=== PATIENT | male | born 1990 | race Caucasian/White ===

== ENCOUNTER 2019-12-21 11:30 | Outpatient (CLI) | payer OTHER | END 2019-12-21 11:31 | disposition home or self-care (01) | LOC: COV 11:30 | PROVIDERS: ATTEND Family Medicine | DX: R05 Cough (principal); R53.83 Other fatigue; Z20.828 Contact with and (suspected) exposure to other viral communicable diseases ==

== ENCOUNTER 2022-10-12 14:39 | Outpatient (CLI) | payer OTHER ==
--- NOTE | 2022-10-12 19:14 | Ultrasound Report ---
PROCEDURE: Abdomen Limited INDICATIONS: UMBILICAL HERNIA TECHNIQUE: Real-time focused scanning was performed of the periumbilical anterior wall, with image documentation . COMPARISONS: None. FINDINGS: Small periumbilical ventral hernia contains fat without bowel involvement. 1 cm fascial def ect noted. IMPRESSION: Small periumbilical ventral hernia Reviewed by: Trell French MD on 10/12/2022 6:12 PM [facility]DT Approved by: Trell French MD on 10/12/2022 6:12 PM AKDT Station ID: [id number]
== END 2022-10-12 14:40 | disposition home or self-care (01) ==
LOC: DI 14:39
PROVIDERS: ATTEND Family Medicine
DX: K43.9 Ventral hernia without obstruction or gangrene (principal)

== ENCOUNTER 2022-12-11 08:38 | Day surgery (SDC) | payer OTHER ==
[~2022-12-11 08:38] MED LIST: PROPOFOL 500 MG/50 ML 500 MG/50 ML VIAL ONE
[2022-12-11] MEDS ORDERED: LACTATED RINGERS 1,000 ML IV ONE (08:40)
[2022-12-11] MEDS ORDERED: BUPIVACAINE 0.25% PF 30 ML VIAL ONE (09:39)
--- NOTE | 2022-12-11 10:00 | HISTORY & PHYSICAL EXAMINATION ---
Chief Complaint - Chief Complaint Chief Complaint: painful hernia bulge History of Present Illness - History Obtained From Records Reviewed: yes History obtained from: pt Exam Limitations: none - History of Present Illness HPI Comment/Other: painful hernia bulge. here for repair History - Past Medical History Cardiovascular: reports: Murmur Respiratory: reports: Sleep apnea Endocrine/Autoimmune: reports: None GI: reports: None : reports: Kidney stones HEENT: reports: Other Psych: reports: Depression Musculoskeletal: reports: None Derm: reports: None MRSA Hx?: No - Past Surgical History HEENT: reports: Myringotomy (tubes) Meds/Allgy - Home Medications Home Medications: Ambulatory Orders Medication Instructions Recorded Confirmed No Known Home Medications 12/04/22 12/04/22 - Allergies Allergies/Adverse Reactions: Allergies Allergy/AdvReac Type Severity Reaction Status Date / Time No Known Drug Allergies Allergy Verified 12/11/22 08:57 Review of Systems - Other Findings Other Findings: 10 pt ros as above otherwise unremarkable Exam - Vital Signs Vital Signs: Vital Signs x48h Temp Pulse Resp BP Pulse Ox 12/11/22 08:41 36.1 C L 72 16 140/90 H 96 - Physical Exam General Appearance: positive: No acute distress, Alert Eyes Bilateral: positive: PERRL, EOMI ENT: positive: No signs of dehydration Neck: positive: No JVD, Trachea midline Respiratory: positive: No respiratory distress, Breath sounds nml Cardiovascular: positive: Regular rate & rhythm Abdomen: positive: Non-tender, No distention, Other (umbilical hernia present) Neurologic/Psychiatric: positive: Oriented x3 Conclusion/Plan - Problem List (1) Umbilical hernia Conclusion/Plan: plan open repair with mesh. parq held and consent obtained Qualifiers: Obstruction and gangrene presence: without obstruction or gangrene Qualified Code(s): K42.9 - Umbilical hernia without obstruction or gangrene
[2022-12-11] MEDS ORDERED: fentaNYL 100 MCG/2 ML VIAL ONE ×2 (10:09→12:22)
[2022-12-11] MEDS ORDERED: ACETAMINOPHEN 1,000 MG/100 ML 1,000 MG/100 ML BAG IV ONE (10:27)
[2022-12-11] MEDS ORDERED: SUCCINYLCHOLINE 200 MG/10 ML VIAL ONE (10:28)
[2022-12-11] MEDS ORDERED: GLYCOPYRROLATE 1 MG/5 ML VIAL ONE (10:28)
[2022-12-11] MEDS ORDERED: DEXAMETHASONE 4 MG/ML VIAL ONE (10:28)
[2022-12-11] MEDS ORDERED: KETOROLAC 30 MG/ML VIAL ONE (10:28)
[2022-12-11] MEDS ORDERED: ONDANSETRON 4 MG/2 ML VIAL ONE (10:28)
[2022-12-11] MEDS ORDERED: ROCURONIUM 50 MG/5 ML VIAL ONE (10:28)
--- NOTE | 2022-12-11 10:46 | ANESTHESIA ---
Pre-Anesthesia VS, & Labs - Diagnosis umbilical hernia - Procedure umbilical hernia repair Vital Signs: Temp Pulse Resp BP Pulse Ox O2 Flow Rate 36.1 C L 72 16 140/90 H 96 12/11/22 08:41 12/11/22 08:41 12/11/22 08:41 12/11/22 08:41 12/11/22 08:41 Height: 5 ft 11 in Weight (kg): 162.7 kg Body Mass Index: 50.0 BMI Classification: Morbidly Obese - NPO >8 hours - Lab Results Lab results reviewed: Yes Home Medications and Allergies Home Medications: Ambulatory Orders No Known Home Medications 12/04/22 No Known Home Medications 12/04/22 Allergies/Adverse Reactions: Allergies Allergy/AdvReac Type Severity Reaction Status Date / Time No Known Drug Allergies Allergy Verified 12/11/22 08:57 Anes History & Medical History - Anesthetic History Anesthesia Complications: reports: No previous complications Family history of Anesthesia Complications: Denies Family history of Malignant Hyperthermia: Denies - Medical History Cardiovascular: reports: None Pulmonary: reports: Sleep apnea (8 yr ago sleep study= severe michel, no cpap, discussed low threshold for overnight admission depending on postop recovery process) Gastrointestinal: reports: None Urinary: reports: Kidney stones Neuro: reports: None Musculoskeletal: reports: None Endocrine/Autoimmune: reports: None Skin: reports: None Smoking Status: Never smoker Psychosocial: reports: No issues indicated - Surgical History Eyes Ears Nose Throat (EENT): reports: Myringotomy (tubes) Exam General: Alert, Oriented x3, Cooperative Mouth and Teeth Image: 1 - chip Mouth Openin Fingerbreadth Neck Mobility: Normal Mallampati classification: IV Thyromental Distance: 4-6 cm Respiratory: Lungs clear Cardiovascular: Regular rate Plan Anesthesia Type: General Consent for Procedure(s) Verified and Reviewed: Yes Code Status: Attempt Resuscitation ASA classification: 3-Severe systemic disease Is this case an emergency?: No
[2022-12-11] MEDS ORDERED: ATROPINE ABBOJECT 1 MG/10 ML SYRINGE IVP PRN (10:47)
[2022-12-11] MEDS ORDERED: ONDANSETRON 4 MG/2 ML VIAL IVP PRN ×2 (10:47→11:40)
[2022-12-11] MEDS ORDERED: fentaNYL 100 MCG/2 ML VIAL IVP PRN (10:47)
[2022-12-11] MEDS ORDERED: NALOXONE 0.4 MG/ML VIAL IVP PRN (10:47)
[2022-12-11] MEDS ORDERED: HYDROmorphone 0.5 MG/0.5 ML SYRINGE IVP PRN ×2 (10:47→11:40)
[2022-12-11] MEDS ORDERED: ePHEDrine 50 MG/ML VIAL IVP PRN (10:47)
[2022-12-11] MEDS ORDERED: LACTATED RINGERS 1,000 ML IV SCH (11:00)
[2022-12-11] MEDS ORDERED: SUGAMMADEX 200 MG/2 ML VIAL IVP ONE ×2 (11:18→11:19)
[2022-12-11] MEDS ORDERED: LIDOCAINE-PF 2% 10 ML AMP SUBQ ONE (11:21)
[2022-12-11] MEDS ORDERED: BUPIVACAINE 0.25% PF 30 ML VIAL SUBQ ONE (11:25)
[2022-12-11] MEDS ORDERED: LACTATED RINGERS 900 ML IV ONE ×2 (11:38)
[2022-12-11] MEDS ORDERED: HYDROcod/ACETAM 5/325 MG TABLET PO PRN (11:40)
--- NOTE | 2022-12-11 11:49 | OPERATIVE REPORT ---
Operative Report - General Procedure Date: 12/11/22 Planned Procedure: open umbilical hernia repair with mesh Pre-Op Diagnosis: painful umbilical hernia Procedure Performed: open umbilical hernia repair with mesh. 3.5 cm hernia Post Op Diagnosis: same - Procedure Note Primary Surgeon: tova watson Anesthesia Technique: General ET tube, Local Pathology: none Estimated Blood Loss (mL): 2 Drain/Tube Type: Other (none) Indications: painful hernia bulge Findings: as above. 1.5 x 3 inch polypropylene mesh Complications: none - Other Other Information/Narrative: The patient was properly identified brought to the operating room and placed in supine position. Sequential compression devices were placed. General anesthesia was induced. The patient was prepped and draped in a sterile fashion and given preoperative antibiotics. Local anesthetic was given throughout the procedure. An infraumbilical incision was made. Dissection proceeded sharply. Subcutaneous tissue was mobilized away from the fascial defect by 2 cm in all directions. Umbilical skin was sharply excised away from the hernia sac or peritoneum. The peritoneum was then carefully released from the fascial defect edge with cutting current cautery. A preperitoneal space was developed for mesh placement. Polypropylene mesh was cut to size approximately 1.5 x 3 inches and placed preperitoneal. The mesh was secured with 9 interrupted 0 Ethibond sutures. An additional inner row of ethibond sutures were placed. The mesh lay in good position without tension. Subcutaneous tissue was reapproximated with interrupted 2-0 Vicryl suture. Umbilical skin was tacked back down to fascia with interrupted 2-0 Vicryl suture. Buried interrupted subdermal 3-0 Vicryl sutures were then placed. Skin was closed with a running 4-0 Monocryl subcuticular suture. Dressing was applied. Patient tolerated the procedure the procedure well was awakened and brought to recovery in good condition.
[2022-12-11 12:54] VITALS: O2SAT 92
[2022-12-11 13:34] VITALS: BP 132/78
--- NOTE | 2022-12-11 19:15 | ANESTHESIA POST OP EVALUATION ---
Anesthesia Post Eval - Post Anesthesia Eval Vitals: Last Vital Signs Temp 36.4 C L 12/11/22 13:08 Pulse 63 12/11/22 13:23 Resp 16 12/11/22 13:23 BP 132/78 H 12/11/22 13:23 Pulse Ox 92 12/11/22 13:23 O2 Flow Rate CV Function Including HR & BP: Stable Pain Control: Satisfactory Nausea & Vomiting: Negative Mental Status: Baseline Respiratory Status: Airway Patent Hydration Status: Satisfactory Anesthesia Complications: None
== END 2022-12-11 08:39 | disposition home or self-care (01) ==
LOC: SDS 08:38
PROVIDERS: ATTEND Surgery
DX: K42.9 Umbilical hernia without obstruction or gangrene (principal); G47.33 Obstructive sleep apnea (adult) (pediatric); E66.01 Morbid (severe) obesity due to excess calories; Z68.43 Body mass index [BMI] 50.0-59.9, adult
CPT/HCPCS: 49593; C1781; J0131; J0330; J7040; J7120

== ENCOUNTER 2023-05-08 14:50 | Outpatient (CLI) | payer OTHER ==
--- NOTE | 2023-05-08 15:45 | Sleep Patient Instructions ---
Sleep Center Visit Summary - Patient Visit Information Reason for Visit: Initial consult for evaluation of sleep disordered breathing and other sleep issues. - Patient Instructions Instructions Attached: Sleep Study Home Monitor Additional Instructions: You will be completing a sleep study, either an in-lab polysomnography (PSG) or home sleep study (HST). You will follow-up in the sleep care office after the sleep study is completed to hear the results and talk about therapy, if needed. You will be called by our office staff to schedule this appointment, but you may contact us with any questions. - Clinic Information Contact: [facility] [address] [place] [address] [email or web address] T: [phone]
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
[2023-05-08 15:53] VITALS: BP 147/92; O2SAT 97
== END 2023-05-08 14:51 | disposition home or self-care (01) ==
LOC: SC 14:50
PROVIDERS: ATTEND Nurse Practitioner Family
DX: G47.10 Hypersomnia, unspecified (principal); R06.81 Apnea, not elsewhere classified; R06.83 Snoring; R53.83 Other fatigue; E66.01 Morbid (severe) obesity due to excess calories; Z68.43 Body mass index [BMI] 50.0-59.9, adult
CPT/HCPCS: 99203; 99212

== ENCOUNTER 2023-06-11 07:58 | Outpatient (CLI) | payer OTHER | END 2023-06-11 07:59 | disposition home or self-care (01) | LOC: SC 07:58 | PROVIDERS: ATTEND Nurse Practitioner Family | DX: G47.33 Obstructive sleep apnea (adult) (pediatric) (principal); R09.02 Hypoxemia; E66.01 Morbid (severe) obesity due to excess calories; Z68.43 Body mass index [BMI] 50.0-59.9, adult | CPT/HCPCS: 95806 ==

== ENCOUNTER 2023-07-02 10:34 | Outpatient (CLI) | payer OTHER ==
--- NOTE | 2023-07-02 10:26 | SLEEP CARE CONSULTATION ---
Information from patient questionnaire entered by Radha Jackman. I have reviewed and concur with the information entered by Radha Jackman. This document represents the service I personally performed and the decisions made by me, Lina Lawrence ARNP. History of Present Illness Service Date and Time: 07/02/2023 1020 Initial [place] Sleepiness Scale score: 13 (04/06/23) Current [place] Sleepiness Scale score: 16 (07/02/23) Additional HPI information: CONSTANTIN BAUER returns via video appointment for follow up and results of the recently performed home sleep study. The sleep study showed severe obstructive sleep apnea with an average AHI of 50 and vivien oxygen saturation of 77%. I explained the pathophysiology behind obstructive sleep apnea. We then spent quite a bit of time discussing different treatment options. For mild obs tructive sleep apnea, surgery and oral appliance are alternatives to nasal CPAP therapy but in moderate or severe cases, nasal CPAP is the most effective and reliable treatment. I reviewed the impact of weight changes on sleep apnea and strongly recommended losing weight. After some discussion, the patient opted to go with the nasal CPAP therapy. Nasal autoCPAP set at 4-15 cmH20 will be ordered with rationale explained. A manual titration study will be ordered if unable to find optimal pressure with office adjustments. I explained how CPAP machine works and what to expect when using the machine. Using CPAP every night in order to get used to it was emphasized. Patient advised to put CPAP mask on before getting into bed so as not to fall asleep without CPAP. To assist acclimation to CPAP use, it could also be used for a short time during day while reading or watching TV. The patient was instructed to call the CPAP supplier to discuss any mechanical problem that may occur. If t he mask given is uncomfortable or is difficult to keep on through the night even with adjustment, contact the CPAP supplier as many will replace with another mask style if notified before 30 days. If snoring or perceives is not getting enough air or too much air from the machine, notify this office. Patient does not drink alcohol. Patient was cautioned about risks of drowsy driving until sleepiness symptoms resolve. Patient denies drowsy driving. Sleep Study - Results Type of Sleep Study: Home sleep study (COMPLETED 06/11/23) Prior sleep studies: Yes Polysomnography/Home Sleep Study results: Physician Impression: The quality of the study is good. The length of the study is adequate (> 240 minutes). Please also see the tabulated and graphic data. 1. Obstructive Sleep Apnea-Hypopnea (ICD-10 G47.33), severe, with an AHI of 50.0/hr and vivien SaO2 of 77%. During the study, the patient had 311 apneas (311 obstructive, 0 central, 0 mixed) and 51 hypopneas. The longest episode lasted 96.5 seconds. The respiratory events occurred independently of body position (supine AHI was 51.9 and non-supine, 45.25). 2. Hypoxemia (ICD-10 R09.02), moderate, with the lowest oxygen saturation of 77 % and 18.5 minutes with SaO2 under 90%. Baseline oxygen saturation was normal (Average oxygen saturation was 94%). Allergies and Home Medications Known drug allergies: No Drug allergies reviewed: Yes Home medication list reviewed: Yes (no changes) Allergy and home medication list: Allergies No Known Drug Allergies Allergy (Verified 07/02/23 09:45) Review of Systems Review of systems same as previous: Yes (NO CHANGE) Physical Exam Vital signs obtained and entered by: RADHA Hines MA Height: 5 ft 11 in (PER PT) Weight: 365 lb (PER PT) Body Mass Index: 50.9 BMI Classification: Morbidly Obese Impression and Plan 1. Obstructive Sleep Apnea-Hypopnea Syndrome, severe, with lowest oxygen saturation of 77%. Obviously this is the cause of the patients symptoms of unrefreshed sleep, and excessive daytime sleepiness. As mentioned above, the patient will be started on nasal autoCPAP therapy with pressure set at 4-15 cmH2 O. A manual titration study will be completed if unable to find optimal treatment pressure with office adjustments. Compliance guidelines also reviewed. A copy of compliance guidelines will be given for reference at check out. 2. Hypoxemia, moderate, with a vivien oxygen saturation of 77% and 18.5 minutes spent under 90%. The baseline oxygen saturation was normal with an average oxygen saturation of 94%. 3. Obesity, unspecified. Currently patients BMI is 50.9. Obesity increases the risk of apnea, CPAP pressure requirements and overall health risks especially cardiovascular and diabetes. Thus patient is advised to lose weight. * Nasal auto CPAP therapy, pressure at 4-15 cm H2O. * Attempt to lose weight. * Avoid alcohol consumption near bedtime. * Avoid supine sleep until using CPAP. * The patient is again cautioned about driving until sleepiness completely resolves. * Return one month after CPAP obtained. I will assess response to therapy and compliance at that time. Counseling Topics: Weight loss health impact Prescriptions: Auto CPAP Visit Type: Telehealth Video Video Type: Doximity Patient Location: Home Location of Provider: Office Patient agrees and consents to this telehealth visit type: Yes Time Spent with Patient (minutes): 13 Provider Statement: I spent 100% of the Telehealth Video Call with the patient with greater than 50% spent counseling the patient and coordination of care.
== END 2023-07-02 10:35 | disposition home or self-care (01) ==
LOC: SC 10:34
PROVIDERS: ATTEND Nurse Practitioner Family
DX: G47.33 Obstructive sleep apnea (adult) (pediatric) (principal); R09.02 Hypoxemia; E66.01 Morbid (severe) obesity due to excess calories; Z68.43 Body mass index [BMI] 50.0-59.9, adult

== ENCOUNTER 2023-09-04 16:06 | Outpatient (CLI) | payer OTHER ==
--- NOTE | 2023-09-04 16:28 | Sleep Patient Instructions ---
Sleep Center Visit Summary - Patient Visit Information Reason for Visit: First compliance follow-up - Patient Instructions Additional Instructions: You were here for follow up of CPAP therapy. You will be continued on CPAP therapy with pressure at 15-17 cmH2O. Please let us know if the pressure change is uncomfortable and we can make further adjustments of the pressure. You should follow up with sleep care in 1-2 months. You may contact us sooner for any questions or concerns. - Clinic Information Contact: [facility] [address] [place] [address] [email or web address] T: [phone]
--- NOTE | 2023-09-04 16:30 | SLEEP CARE CONSULTATION ---
Information from patient questionnaire entered by Radha Jackman. I have reviewed and concur with the information entered by Radha Jackman. This document represents the service I personally performed and the decisions made by me, Lina Lawrence ARNP. History of Present Illness Service Date and Time: 09/04/2023 160 Previous diagnosis: Severe, Obstructive Sleep Apnea-Hypopnea Syndrome AHI: 50 (on 06/11/23) Reason for follow up: first compliance Equipment type: CPAP (REMED Airsense 11, S/U 07/17/23) Equipment obtained from: Other ([facility]; getting supplies) Mask style: Full face (Cj full, large cushion) Backup mask available: No (will keep old mask when replaced) Prior sleep studies: Yes Type of Sleep Study: Home sleep study (COMPLETED 06/11/23) HPI additional information: CONSTANTIN BAUER was diagnosed to have severe, AHI 50, obstructive sleep apnea- hypopnea syndrome and returned today for CPAP therapy first compliance follow- up. Sleep Study - Results Type of Sleep Study: Home sleep study (COMPLETED 06/11/23) Prior sleep studies: Yes CPAP Compliance Data - Data Reviewed with Patient Average duration of nightly device use: 4 HRS 56 MINS Compliance rate %: 70 (07/27/23-08/25/23; 29/30 days used) Current pressure setting (cmH2O): 4-15 (median 14.6, avg 14.9, max 15) Average residual AHI: 5.3 Central apnea: 0 Obstructive apnea: 3 Hypopnea: 2.1 Average large leak: 0.5 L/min Subjective Missed days of use due to: reports: other (took off mask when sleeping) Patient concerns: denies: aerophagia, mask discomfort, air blowing in eyes, mask leak noise, condensation in mask/hose, nasal congestion, dry mouth, nose, throat, epistaxis Observed to snore while using device: No Current pressure setting perceived as: comfortable On therapy, patient: reports: sleeping better, awakening more refreshed, being more awake and alert during the day, more rested overall. denies: drowsiness while driving Initial [place] Sleepiness Scale score: 13 (04/06/23) Current [place] Sleepiness Scale score: 4 (09/04/23) Allergies and Home Medications Known drug allergies: No Drug allergies reviewed: Yes Home medication list reviewed: Yes (no changes) Allergy and home medication list: Allergies No Known Drug Allergies Allergy Review of Systems Review of systems same as previous: Yes (NO CHANGE) Physical Exam Vital signs obtained and entered by: RADHA Hines MA Blood Pressure: 161/94 (RIGHT ARM) Cuff size: long Heart Rate: 73 O2 Saturation: 96 Height: 5 ft 11 in ([facility] PT) Weight: 364 lb Body Mass Index: 50.8 BMI Classification: Morbidly Obese Impression and Plan 1. Obstructive Sleep Apnea-Hypopnea Syndrome, severe, with good treatment compliance and fair apnea control with minimal elevation of residual AHI. On CPAP therapy, the patient has better sleep quality and is more rested overall. He has significant improvment of his sleep apnea and is satisfied with current C PAP therapy. He has not concerns or complaints with CPAP use today. The patients pressure will be changed to autoCPAP 15-17 cmH20 for elevation of residual AHI. Patient advised to contact me if pressure change is uncomfortable so that it can be adjusted. Goals for apnea control discussed. Patient's apnea severity and rationale for treatment to reduce apnea, improve sleep quality and reduce cardiovascular and cerebrovascular events was reviewed. 2. Obesity, unspecified. Currently patients BMI is 50.8. Obesity increases the risk of apnea, CPAP pressure requirements and overall health risks especially cardiovascular and diabetes. Thus patient is advised to lose weight. * Change auto CPAP pressure to 15-17 cmH2O * Notify me if snoring with mask or feeling that the pressure is too much or too little * Attempt to lose weight * Call this office if any problems using CPAP * Return for follow up in 1-2 months, or sooner if concerns arise Adjust device pressure to (cmH2O): 15-17 Counseling Topics: Weight loss health impact Follow up with Sleep Care in: 1-2 months Visit Type: In Office Time Spent with Patient (minutes): 21 Provider Statement: I spent 100% of the Face to Face Visit with the patient with greater than 50% spent counseling the patient and coordination of care.
[2023-09-04 16:37] VITALS: BP 161/94; O2SAT 96
== END 2023-09-04 16:07 | disposition home or self-care (01) ==
LOC: SC 16:06
PROVIDERS: ATTEND Nurse Practitioner Family
DX: G47.33 Obstructive sleep apnea (adult) (pediatric) (principal); E66.01 Morbid (severe) obesity due to excess calories; Z68.43 Body mass index [BMI] 50.0-59.9, adult
CPT/HCPCS: 99212; 99213

== ENCOUNTER 2023-10-23 09:15 | Outpatient (CLI) | payer OTHER ==
--- NOTE | 2023-10-23 09:44 | Sleep Patient Instructions ---
Sleep Center Visit Summary - Patient Visit Information Reason for Visit: 6-week follow-up for PAP therapy - Patient Instructions Additional Instructions: You were here for follow up of CPAP therapy. You will be continued on CPAP therapy with pressure at 15-17 cmH2O. You should follow up with sleep care in 3 months. You may contact us sooner for any questions or concerns. - Clinic Information Contact: [facility] [address] [place] [id number] [email or web address] T: [phone]
--- NOTE | 2023-10-23 09:46 | SLEEP CARE CONSULTATION ---
Information from patient questionnaire entered by Tyler Burnette. I have reviewed and concur with the information entered by Tlyer Burnette. This document represents the service I personally performed and the decisions made by , Lina Lawrence ARNP. History of Present Illness Service Date and Time: 10/23/2023914 Previous diagnosis: Severe, Obstructive Sleep Apnea-Hypopnea Syndrome AHI: 50 (on 06/11/23) Reason for follow up: other (6-Week F/U -Pressure change) Equipment type: CPAP (REMED Airsense 11, S/U 07/17/23) Equipment obtained from: Other ([facility]; getting supplies) Mask style: Full face (Cj full, large cushion) Backup mask available: Yes Last cushion change: last week Prior sleep studies: Yes Type of Sleep Study: Home sleep study (COMPLETED 06/11/23) HPI additional information: CONSTANTIN BAUER was diagnosed to have severe, AHI 50, obstructive sleep apnea- hypopnea syndrome and returned today for CPAP therapy six week follow-up. Sleep Study - Results Type of Sleep Study: Home sleep study (COMPLETED 06/11/23) Prior sleep studies: Yes CPAP Compliance Data - Data Reviewed with Patient Average duration of nightly device use: 5 h 30 min Compliance rate %: 80 ( days used) Current pressure setting (cmH2O): 15-17 Average residual AHI: 3.3 Central apnea: 0.3 Obstructive apnea: 2.3 Hypopnea: 0.5 Average large leak: 1.2 L/min Subjective Missed days of use due to: reports: other (Power outage) Patient concerns: reports: dry mouth, nose, throat (sometimes). denies: aerophagia, mask discomfort, air blowing in eyes, mask leak noise, condensation in mask/hose, nasal congestion, epistaxis Observed to snore while using device: No Current pressure setting perceived as: comfortable On therapy, patient: reports: sleeping better, awakening more refreshed, being more awake and alert during the day, more rested overall. denies: drowsiness while driving Initial [place] Sleepiness Scale score: 13 (04/06/23) Current [place] Sleepiness Scale score: 6 (10/23/23) Allergies and Home Medications Known drug allergies: No Drug allergies reviewed: Yes Home medication list reviewed: Yes (no changes) Allergy and home medication list: Allergies No Known Drug Allergies Allergy Review of Systems Review of systems same as previous: Yes (no changes) Physical Exam Vital signs obtained and entered by: Lina Ricketts NP Blood Pressure: 146/84 Cuff size: long (right arm) Heart Rate: 83 O2 Saturation: 98 Height: 5 ft 11 in ([facility] PT) Weight: 344 lb 12.8 oz Body Mass Index: 48.0 BMI Classification: Morbidly Obese Impression and Plan 1. Obstructive Sleep Apnea-Hypopnea Syndrome, severe, with good treatment compliance and good apnea control. On CPAP therapy, the patient has better sleep quality and is more rested overall. He has significant improvement of his sleep apnea and is comfortable with CPAP use. He has no issues or complaints to r eport today. Patient's apnea severity and rationale for treatment to reduce apnea, improve sleep quality and reduce cardiovascular and cerebrovascular events was reviewed. 2. Obesity, unspecified. Currently patients BMI is 48. Obesity increases the risk of apnea, CPAP pressure requirements and overall health risks especially cardiovascular and diabetes. Thus patient is advised to lose weight. * Continue auto CPAP pressure at 15-17 cmH2O * Notify me if snoring with mask or feeling that the pressure is too much or too little * Attempt to lose weight * Call this office if any problems using CPAP * Return for follow up in 3 months, or sooner if concerns arise Counseling Topics: Spare mask, Weight loss health impact Follow up with Sleep Care in: 3 months Visit Type: In Office Time Spent with Patient (minutes): 13 Provider Statement: I spent 100% of the Face to Face Visit with the patient with greater than 50% spent counseling the patient and coordination of care.
[2023-10-23 09:51] VITALS: BP 146/84; O2SAT 98
== END 2023-10-23 09:16 | disposition home or self-care (01) ==
LOC: SC 09:15
PROVIDERS: ATTEND Nurse Practitioner Family
DX: G47.33 Obstructive sleep apnea (adult) (pediatric) (principal); E66.01 Morbid (severe) obesity due to excess calories; Z68.42 Body mass index [BMI] 45.0-49.9, adult
CPT/HCPCS: 99212